=== PATIENT | female | born 1985 | race American Indian/Alaskan Native ===

== ENCOUNTER 2017-11-18 12:11 | Emergency (ER) | payer BC, MEDICAID ==
[2017-11-18 12:21] VITALS: BP 129/76; PULSE 86; RESP 16; TEMP 98.7; O2SAT 100
[2017-11-18] MEDS ORDERED: Lidocaine 5% Patch TD STA (12:40)
[2017-11-18] MEDS ORDERED: Oxycodone/Acetaminophen 5/325 mg Tab PO STA (12:43)
[2017-11-18] MEDS ORDERED: Lidocaine 5% Patch TD ONE (12:58)
[2017-11-18] MEDS ORDERED: Oxycodone/Acetaminophen 5/325 mg Tab ONE (13:00)
--- NOTE | 2017-11-18 13:25 | ED PDOC ---
Lower Extremity Pain/Injury Time Seen by Provider: 11/18/17 12:27 Chief Complaint (Nursing): Lower Extremity Problem/Injury Chief Complaint (Provider): Lower Extremity Injury History Per: Patient History/Exam Limitations: no limitations Onset/Duration Of Symptoms: Days (x1) Current Symptoms Are (Timing): Still Present Additional Complaint(s): 31 year old female presents to ED with complaints of right knee pain x1 day and has no past medical history. Notes that she felt her right knee twist as she was coming down the stairs. Reports sustaining an injury to her right knee last year and was diagnosed with possibly torn cartilage, but never followed up or had an MRI. Notes that she was recommended to ED from urgent care, at which she had an XR done and was given Motrin. (-) numbness, tingling, or other injury. PCP: [facility] - Knee Description Of Injury: Fell, Twisted Past Medical History Reviewed: Historical Data, Nursing Documentation, Vital Signs Vital Signs: Last Vital Signs Temp 98.7 F 11/18/17 12:19 Pulse 86 11/18/17 12:19 Resp 16 11/18/17 12:19 BP 129/76 11/18/17 12:19 Pulse Ox 100 11/18/17 12:19 - Medical History PMH: No Chronic Diseases - Surgical History Surgical History: No Surg Hx - Family History Family History: States: Unknown Family Hx - Living Arrangements Living Arrangements: With Family - Immunization History Hx Influenza Vaccination: No Hx Pneumococcal Vaccination: No - Home Medications Home Medications: Ambulatory Orders Medication Instructions Recorded Famotidine [Pepcid] 20 mg PO DAILY #10 tab 06/03/16 Ibuprofen [Motrin] 600 mg PO TID #21 tab 06/03/16 Diclofenac Sodium [Voltaren] 4 gm TP QID PRN #100 gel..gram. 11/18/17 - Allergies Allergies/Adverse Reactions: Allergies Allergy/AdvReac Type Severity Reaction Status Date / Time Sulfa (Sulfonamide Allergy RASH Verified 06/03/16 15:06 Antibiotics) sulfamethoxazole Allergy RASH Verified 06/03/16 15:07 [From Bactrim] trimethoprim [From Bactrim] Allergy RASH Verified 06/03/16 15:07 Wells Criteria for PE - Wells Criteria for Pulmonary Embolism Clinical Signs and Symptoms of DVT: No P.E is #1 Diagnosis, or Equally Likely: No Heart Rate >100: No Immobilization at least 3 days;Surgery previous 4 weeks: No Previous, objectively diagnosed PE or DVT: No Hemoptysis: No Malignancy w/treatment within 6 months, or palliative: No Total Score: 0 Review of Systems ROS Statement: Except As Marked, All Systems Reviewed And Found Negative Musculoskeletal: Positive for: Leg Pain (right knee pain) Neurological: Negative for: Numbness ((-) tingling) Physical Exam - Reviewed Nursing Documentation Reviewed: Yes Vital Signs Reviewed: Yes - Physical Exam Appears: Positive for: Non-toxic, No Acute Distress Skin: Positive for: Normal Color, Warm, Dry Pulses-Dorsalis Pedis (L): 2+ Pulses-Dorsalis Pedis (R): 2+ Extremity: Positive for: Tenderness (mild tenderness to the anterior surface of right knee with greatest amount of tenderness on medial tenderness), Swelling ( mild swelling to anterior surface of right knee). Negative for: Other ((-) valgus or varus laxity) Neurologic/Psych: Positive for: Alert, Oriented. Negative for: Motor/Sensory Deficits - ECG O2 Sat by Pulse Oximetry: 100 (RA) Pulse Ox Interpretation: Normal - Progress ED Course And Treament: Case d/w Dr. Sandy, urgent care, and states he was unable to control patient's pain in clinic and unable to contact ortho. L knee immobilized in immobilizer applied by RN. Medical Decision Making Medical Decision Makin Initial impression: right knee pain Initial plan: * Lidoderm 1 ea TD * Percocet 1 tab PO * Toradol 30mg IM * Re-eval Scribe Attestation: Documented by Josee Beasley, acting as a scribe for Jose Murdock PA-C. Provider Scribe Attestation: All medical record entries made by the Scribe were at my direction and personally dictated by me. I have reviewed the chart and agree that the record accurately reflects my personal performance of the history, physical exam, medical decision making, and the department course for this patient. I have also personally directed, reviewed, and agree with the discharge instructions and disposition. Disposition - Clinical Impression Clinical Impression: Knee injury - Patient ED Disposition Is Patient to be Admitted: No - Disposition Referrals: [facility] [Outside] Eileen Pacheco MD [Staff Provider] - Disposition: Routine/Home Disposition Time: 13:24 Condition: STABLE Prescriptions: Diclofenac Sodium [Voltaren] 4 gm TP QID PRN #100 gel..gram. PRN Reason: Pain Instructions: Knee Pain (ED) Forms: [facility] (Mosotho), [facility] ED School/Work Excuse Print Language: KISWAHILI
--- NOTE | 2017-11-18 13:26 | ED PDOC ---
HPI: General Adult Time Seen by Provider: 11/18/17 12:27 Chief Complaint (Nursing): Lower Extremity Problem/Injury Past Medical History Vital Signs: Last Vital Signs Temp 98.7 F 11/18/17 12:19 Pulse 86 11/18/17 12:19 Resp 16 11/18/17 12:19 BP 129/76 11/18/17 12:19 Pulse Ox 100 11/18/17 13:27 - Family History Family History: States: Unknown Family Hx - Immunization History Hx Influenza Vaccination: No Hx Pneumococcal Vaccination: No - Home Medications Home Medications: Ambulatory Orders Medication Instructions Recorded Famotidine [Pepcid] 20 mg PO DAILY #10 tab 06/03/16 Ibuprofen [Motrin] 600 mg PO TID #21 tab 06/03/16 Diclofenac Sodium [Voltaren] 4 gm TP QID PRN #100 gel..gram. 11/18/17 - Allergies Allergies/Adverse Reactions: Allergies Allergy/AdvReac Type Severity Reaction Status Date / Time Sulfa (Sulfonamide Allergy RASH Verified 06/03/16 15:06 Antibiotics) sulfamethoxazole Allergy RASH Verified 06/03/16 15:07 [From Bactrim] trimethoprim [From Bactrim] Allergy RASH Verified 06/03/16 15:07 - ECG O2 Sat by Pulse Oximetry: 100 Disposition - Clinical Impression Clinical Impression: Knee injury - Patient ED Disposition Is Patient to be Admitted: No - Disposition Referrals: Eileen Pacheco MD [Staff Provider] - [employer] [facility] [Outside] Disposition: Routine/Home Disposition Time: 13:24 Condition: STABLE Prescriptions: Diclofenac Sodium [Voltaren] 4 gm TP QID PRN #100 gel..gram. PRN Reason: Pain Instructions: Knee Pain (ED) Forms: [email or web address] (Irish), [facility] ED School/Work Excuse Print Language: CROATIAN
== END 2017-11-18 13:51 | disposition home or self-care (01) ==
LOC: H.ER 12:11
DX: S89.91XA Unspecified injury of right lower leg, initial encounter (principal); X50.1XXA Overexertion from prolonged static or awkward postures, initial encounter; Y93.9 Activity, unspecified